=== PATIENT | female | born 1980 | race Caucasian/White ===

== ENCOUNTER 2022-08-24 08:11 | Outpatient (CLI) | payer OTHER, SELFPAY ==
[2022-08-24 15:15] LABS: Albumin* 4.4 g/dL (3.3-5.0); Chloride* 106 mmol/L (96-114)
[2022-08-24 15:16] LABS: Potassium* 4.4 mmol/L (3.6-5.1); Sodium* 139 mmol/L (135-149)
[2022-08-24 15:18] LABS: Bilirubin Total* 0.6 mg/dL (0.1-1.5); Blood Urea Nitrogen* 20 mg/dL (5-24); Carbon Dioxide* 23 mmol/L (20-32); Cholesterol* 180 mg/dL (90-199); Creatinine* 0.6 mg/dL (0.5-1.5); Estimated Glomerular Filt Rate 116 ml/min; Total Protein* 7.1 g/dL (6.0-8.3)
[2022-08-24 15:19] LABS: Alanine Aminotransferase* 18 U/L (4-35); Alkaline Phosphatase* 44 U/L (40-150); Aspartate Amino Transferase* 21 U/L (12-35); Calcium* 9.5 mg/dL (8.4-10.6); Glucose* 78 mg/dL (60-115); HDL Cholesterol* 79 mg/dL (>=50)
== END 2022-08-24 08:12 | disposition home or self-care (01) ==
PROVIDERS: PCP Physician Assistant Medical; Visit Provider Family Medicine
DX: Z01.419 Encounter for gynecological examination (general) (routine) without abnormal findings (principal); B35.1 Tinea unguium
CPT/HCPCS: 80053; 80076; 82465; 83718

== ENCOUNTER 2022-11-09 08:17 | Outpatient (CLI) | payer OTHER, SELFPAY ==
[2022-11-09 14:29] LABS: Alanine Aminotransferase* 18 U/L (4-35); Albumin* 3.9 g/dL (3.3-5.0); Alkaline Phosphatase* 41 U/L (40-150); Aspartate Amino Transferase* 21 U/L (12-35); Bilirubin Direct* 0.2 mg/dL (0.0-0.5); Bilirubin Total* 0.3 mg/dL (0.1-1.5); Total Protein* 6.6 g/dL (6.0-8.3)
== END 2022-11-09 08:18 | disposition home or self-care (01) ==
LOC: LKVREF 08:17
PROVIDERS: PCP Physician Assistant Medical; Visit Provider Family Medicine
DX: B35.1 Tinea unguium (principal)
CPT/HCPCS: 80076

== ENCOUNTER 2023-10-06 08:24 | Outpatient (CLI) | payer OTHER, SELFPAY | END 2023-10-06 08:25 | disposition home or self-care (01) | LOC: NFLDREF 08:28 | PROVIDERS: PCP Family Medicine; Visit Provider Internal Medicine | DX: Z13.29 Encounter for screening for other suspected endocrine disorder (principal) | CPT/HCPCS: 84443 ==

== ENCOUNTER 2024-08-07 14:44 | Outpatient (CLI) | payer OTHER, SELFPAY ==
--- NOTE | 2024-08-07 14:45 | CRLHL7_ITS ---
For Patients: As a result of the Cures Act, medical imaging exams and procedure reports are released immediately into your electronic medical record. You may view this report before your referring provider. If you have questions, please contact your health care provider. INDICATION: Thyroid nodule COMPARISON: 08/01/2021 TECHNIQUE: Jeter scale and color Doppler images were acquired of the thyroid gland. FINDINGS: Isthmus measures 3.8 millimeters. Solid and cystic nodule left thyroid lobe inferior pole measures 7 x 3 x 8 millimeters, TR 3. Solid hypoechoic nodule right thyroid lobe measures 8 x 6 x 6 millimeters, TR 4. Solid nodule right thyroid lobe previously biopsied measures 3.4 x 1.7 x 2.5 cm, TR 4, not significantly changed. The right lobe measures 5.7 x 1.9 x 2.4 cm and the left lobe measures 5.4 x 1.4 x 1.6 cm in size. The color Doppler images demonstrate normal vascularity. There is no evidence of cervical lymphadenopathy or parathyroid mass. IMPRESSION: Similar previously biopsied TR 4 nodule right thyroid lobe measuring 3.4 cm. Dictated by Michael Longoria MD @ 08/08/2024 11:47:53 AM (Electronically Signed)
--- OUTSIDE RECORDS SUMMARY | 2024-08-07 14:48 | XMS_ITS | Clinical Summary ---
Author Organization [facility] Address [address] [place] [address] Care Team Providers Care Riveter Name Role Phone Alfonso Mar MD Primary Care Provider Allergies No known active allergies Medications Medication Sig Dispensed Refills Start Date End Date Status ibuprofen (ADVIL/MOTRIN) 600 MG tabletIndications:Po stoperative pain Take 1 tablet (600 mg) by mouth every 6 hours as needed for mild pain or moderate pain (4-6) Take w/ food 30 tablet 11/17/2022 Active Active Problems Problem Noted Date Diagnosed Date Oral contraceptive pill surveillance 03/17/2021 Resolved Problems Problem Noted Date Diagnosed Date Resolved Date Exposure to influenza 12/12/20192019 delivery delivered 12/12/2019 01/12/2020 Breech presentation, deliver ed, current hospitalization 11/20/2019 01/12/2020 Genital herpes simplex virus (HSV) infection in mother affecting 11/20/2019 12/12/2019 AMA (advanced maternal age) multigravida 35+ 9 12/12/2019 Immunizations Name Administration Dates Next Due Influenza Vaccine >6 months,quad, PF 09/06/2019 TDAP Vaccine (Adacel) 09/18/2019 Family History Medical History Relation Comments No Known Problems Father No Known Problems Mother Unknown/Adopted No family hx of Relation Status Comments Father Alive Mother Alive Social History Tobacco Use Types Packs/Day Years Used Date Smoking Tobacco: Former Cigarettes Q uit: 03/08/2005 Smokeless Tobacco: Never Tobacco Cessation:Counseling Given: No Alcohol Use Standard Drinks/Week Comments Never 0 (1 standard drink = 0.6 oz pur e alcohol) AUDIT-C Answer Date Recorded Q1: How often do you have a drink containing alc ohol? Never 06/05/2019 Average Number of Drinks Not on file 019 Frequency of Binge Drinking Not on file 03/2019 PHQ-2 Answer Date Recorded PHQ-2 Score 0 09/04/2022 [place] Depression Scale Answer Date Recorded [place] Depression Score 6 12/14/2019 Last EPDS Self Harm Result Not on file 12/14 Adolescent Education Answer Date Record ed Getting School Help Needed Not on file 08/15 Sex and Gender Information Value Date Recorded Sex Assigned at Not on file Gender Identity Not on file Sexual Orientation Not on file Last Filed Vital Signs Vital Sign Reading Time Taken Comments Blood Pressure 118/62 01/11/2023 2:36 PM CDT Pulse 51 11/17/2022 9:30 AM YARD PIPE GRADER Temperature 37.4 ??C (99.4 ??F) 11/17/2022 10:[address] Respiratory Rate 16 11/17/2022 10:08 AM YARD PIPE GRADER Oxygen Saturation 98% 11/17/2022 10:08 AM YARD PIPE GRADER Inhaled Oxygen Concentration - - Weight 85.7 kg (189 lb) 01/11/2023 2:36 PM CDT Height 167.6 cm (5' 6) 01/11/2023 2:36 PM CDT Body Mass Index 30.51 01/11/2023 2:36 PM CDT Plan of Treatment Health Maintenance Due Date Last Done Comments ANNUAL REVIEW OF HM ORDERS 1981 GLUCOSE 1981 HEPATITIS C SCREENING 1999 HEPATITIS B IMMUNIZATION (1 of 3 - 19+ 3-dose series) 2000 LIPID 2021 YEARLY PREVENTIVE VISIT 09/04/2023 09/04/2022, 03/17 PHQ-2 (once per calendar year) 2023 09/04/2022, 03/17/2021, 03/17/2021, Additional history exists HPV TEST 03/17/2024 03/17/2021, 01/20/2018 PAP 03/17/2024 03/17/2021, 12/31, 01/20/2018 COVID-19 Vaccine ( season) 2024 INFLUENZA VACCINE (#1) 2024 09/06/2019, 2018 MAMMO SCREENING 11/02/2025 11/02/2023, 09/25/2022 ADVANCE CARE PLANNING 03/17/2026 03/17/2021 DTAP/TDAP/TD IMMUNIZATION (3 - Td or Tdap) 09/18/2029 09/18/2019, 04/02/2008 HIV SCREENING Completed 05/31/2019 HPV IMMUNIZATION Aged Out No longer e ligible based on patient's age to complete this topic MENINGITIS IMMUNIZATION Aged Out No l onger eligible based on patient's age to complete this topic Pneumococcal Vaccine: Pediatrics (0 to 5 Years) and At-Risk Patients (6 to 64 Years) Aged Out No longer eligible based on patient's age to complete this topic RSV MONOCLONAL ANTIBODY Aged Out No l onger eligible based on patient's age to complete this topic Procedures Procedure Name Priority Date/Time Associated Diagnosis Comments MA SCREENING BILATERAL W/ ROGER Routine 11/02/2023 9:09 AM YARD PIPE GRADER Visit for screening mammogram PAP IMAGED THIN LAYER SCREEN Routine 03/17/2021 3:52 PM CDT Screening for malignant neoplasm of cervix HPV HIGH RISK TYPES DNA CERVICAL Routine 03/17/2021 3:45 PM CDT Screening for malignant neoplasm of cervix HIV ANTIGEN ANTIBODY COMBO Routine 05/31/2019 2:03 PM CDT care, subsequent , unspecified trimester from Last 3 Months or Most Recently Relevant to Health Maintenance Results * MA Screen Bilateral w/Roger (11/02/2023 9:09 AM YARD PIPE GRADER) Anatomical Region Laterality Modality Breast Bilateral Mammography Impressions 11/02/2023 11:02 AM YARD PIPE GRADER IMPRESSION: ACR BI-RADS Category 1: Negative RECOMMENDED FOLLOW-UP: Annual routine screening mammogram The results and recommendations of this examination will be communicated to the patient. Herson Block MD Narrative 11/02/2023 11:02 AM YARD PIPE GRADER BILATERAL FULL FIELD DIGITAL SCREENING MAMMOGRAM WITH TOMOSYNTHESIS Performed on: 11/02/23 Compared to: 09/25/2022 Technique: ??This study was evaluated with the assistance of Computer-Aided Detection. ??Breast Tomosynthesis was used in interpretation. Findings: The breasts have scattered areas of fibroglandular density. ?? There is no radiographic evidence of malignancy. Jomar Cameron MD IM MAMMOGRAPHY ORDE PREM * Pap imaged thin layer screen with HPV - recommended age 30 - 65 (03/17/2021 3:52 PM CDT) PAP NIL COPATH Copath Report Patient Name: TANNA CASEY MR#: [id number] Specimen #: [id number] Collected: 03/17/2021 Received: 03/18/2021 Reported: 03/20/2021 10:44 Ordering Phy(s): JOMAR CAMERON For improved result formatting, select 'View Enhanced Report Format' under Linked Documents section. SPECIMEN/STAIN PROCESS: Pap imaged thin layer prep screening (Surepath, FocalPoint with guided screening) ? Pap-Cyto x 1, HPV ordered x 1 SOURCE: Cervical, endocervical Pap imaged thin layer prep screening (Surepath, FocalPoint with guided screening) SPECIMEN ADEQUACY: Satisfactory for evaluation. -Transformation zone component absent. CYTOLOGIC INTERPRETATION: Negative for intraepithelial lesion or malignancy Electronically signed out by: DONNIE Childs (ASCP) CLINICAL HISTORY: LMP: 03/03/2021 Papanicolaou Test Limitations: ??Cervical cytology is a screening test with limited sensitivity; regular screening is critical for cancer prevention; Pap tests are primarily effective for the diagnosis/preventi on of squamous cell carcinoma, not adenocarcinomas or other cancers. COLLECTION SITE: Client: ??[facility] Location: [facility] () The technical component of this testing was completed at the [facility], with the professional component performed at the [facility], [address] [place] [phone] ([phone]) COPATH Cytology 03/17/2021 3:52 PM CDT 03/18/2021 2:00 PM CDT Jomar Cameron MD LAB - DIAZ TIPTONA L SPECIMEN COPATH * HPV High Risk Types DNA Cervical (03/17/2021 3:45 PM CDT) HPV Source SurePath 03/17/2021 3:52 PM CDT [facility] HPV 16 DNA Negative NEG^Nega tive 03/21/2021 4:42 PM CDT [facility] HPV 18 DNA Negative NEG^Nega tive 03/21/2021 4:42 PM CDT [facility] Other HR HPV Negative NEG^Nega tive 03/21/2021 4:42 PM CDT [facility] Final Diagnosis This patient's sample is negative for HPV DNA. 03/21/2021 4:42 PM CDT [facility] Comment: This test was developed and its performance characteristics determined by the [facility], [facility]. It has not been cleared or approved by the FDA. The laboratory is regulated under CLIA as qualified to perform high-complexity testing. This test is used for clinical purposes. It should not be regarded as investigational or for research. (Note) METHODOLOGY: ??The Walter timur 4800 system uses automated extraction, simultaneous amplification of HPV (L1 region) and beta-globin, ?? followed by ??real time detection of fluorescent labeled HPV and beta globin using specific oligonucleotide probes . The test specifically identifies types HPV 16 DNA and HPV 18 DNA while concurrently detecting the rest of the high risk types (31, 33, 35, 39, 45, 51, 52, 56, 58, 59, 66 or 68). COMMENTS: ??This test is not intended for use as a screening device for women under age 30 with normal cervical cytology. ??Results should be correlated with cytologic and histologic findings. Close clinical followup is recommended. Specimen Description Cervical Cells 03/17/2021 3:52 PM CDT [facility] Cervical Cells 03/17/2021 3: 45 PM CDT 03/17/2021 4:46 PM CDT Jomar Cameron MD LAB - BLOOD ORDERABL ES [facility] [address] [place] [address] [facility] [address] [place] [address] * HIV Antigen Antibody Combo (05/31/2019 2:03 PM CDT) HIV Antigen Antibody Combo Nonreactive NR^Nonrea ctive 06/01/2019 7:58 AM CDT [facility] Comment:HIV-1 p24 Ag & HIV-1 /HIV-2 Ab Not Detected Blood specimen (specimen) 05/31/2019 2:03 PM CDT 05/31/2019 2:08 PM CDT Jomar Cameron MD LAB - BLOOD ORDERABL ES [facility] [address] [place] [address] from Last 3 Months or Most Recently Relevant to Health Maintenance Care Teams Riveter Relationship Specialty Start Date End Date Alfonso Mar MD [facility] [address] [place], [place] [id number] PCP - General Family Medicine 11/17/22
--- OUTSIDE RECORDS SUMMARY | 2024-08-07 14:49 | XMS_ITS | Encounter Summary ---
Author Organization [facility] Address [address] [place] [address] Care Team Providers Care Heel Layer Name Role Phone No Ref-Primary, Physician Primary Care Provider Jomar Cameron MD Unavailable [phone] Val Ramires PA-C Unavailable [phone] Jomar Cameron MD Primary Care Provider [phone] Alfonso Mar MD Primary Care Provider [phone] Reason for Visit * Reason Onset Date Comments Medication Question 08/13/2021 KAVITHA Encounter Details Date Type Department Care Team (Late st Contact Info) Description 08/13/2021 Telephone [facility] Women's [facility] [address] [place] [address] Jomar Cameron MD [address] [place] [address] Medication Question (KAVITHA ) Social History Tobacco Use Types Packs/Day Years Used Date Smoking Tobacco: Former Cigarettes Q uit: 03/08/2005 Smokeless Tobacco: Never Alcohol Use Standard Drinks/Week Comments Never 0 (1 standard drink = 0.6 oz pur e alcohol) AUDIT-C Answer Date Recorded Q1: How often do you have a drink containing alc ohol? Never 06/05/2019 Average Number of Drinks Not on file 019 Frequency of Binge Drinking Not on file 03/2019 PHQ-2 Answer Date Recorded PHQ-2 Score 0 03/17/2021 [place] Depression Scale Answer Date Recorded [place] Depression Score 6 12/14/2019 Last EPDS Self Harm Result Not on file 12/14 Sex and Gender Information Value Date Recorded Sex Assigned at Not on file Gender Identity Not on file Sexual Orientation Not on file documented as of this encounter Miscellaneous Notes * Telephone Encounter - Cheryl Rosa RN - 08/13/2021 10:57 AM CDT Patient informed of message below. Cheryl Rosa RN * Telephone Encounter - Jomar Cameron MD - 08/13/2021 10:36 AM CDT Advise Pt that the her chart suggests she had noted hair loss dating back to before 07/23/2021 visitwith her Family Medicine provider in [place], and Dr. Garcia had then sent in her initial OCP Rx08/05/2021. So the OCPs may not have been the cause of her hair loss. Having said that, I am certainly able to send in a different OCP. I recommend an OCP that has a higher anti-androgen (male hormonewhich women do have some small amount of testosterone production) because androgens can contribute to hair loss. I will send in a Rx Apri OCPs which she can start when her next pack is due to start. * Telephone Encounter - Cheryl Rosa RN - 08/13/2021 8:49 AM CDT Spoke with pt. On Kavitha FE. (this is a new generic) Has been on , and Microgestin Has noticed substantial hair loss in shower and when padilla hair within the last 2-3 months which coincides with start of this pill. Has had thyroid biopsy and labs and all normal. (see care everywhere) No other new medications or changes in life. Hair loss is worse than PP hair loss. Willing to try other options. Please advise. Cheryl Cassin, RN * Telephone Encounter - Yaima Young - 08/13/2021 7:44 AM CDT Reason for Call: Other prescription Detailed comments: pt stated she is experiencing hair loss while taking Kavitha. Please call to discuss. Phone Number Patient can be reached at: Home number on file [phone] (home) Best Time: Can we leave a detailed message on this number? YES Call taken on 08/13/2021 at 7:44 AM by Yaima Young documented in this encounter Plan of Treatment Not on file documented as of this encounter Visit Diagnoses Diagnosis Oral contraceptive pill surveillance- Primary Surveillance of previously prescribed contraceptive pill documented in this encounter Additional Health Concerns Assessment Noted Time PHQ-9 Depression Total Score: 0 03/17/20 21 3:01 PM CDT documented as of this encounter Care Teams Heel Layer Relationship Specialty Start Date End Date No Ref-Primary, Physician PCP - General 05/31/19 10/29/22 Jomar Cameron MD PCP - General dobie worker 10/30/22 11/16/22 Alfonso Mar MD [address] [address] PCP - General Family Medicine 11/17/22 Jomar Cameron MD Assigned OBGYN Provider 08/23/20 Val Ramires PA-C [address] [address] Assigned Surgical Provider 01/15/21 documented as of this encounter
--- OUTSIDE RECORDS SUMMARY | 2024-08-07 14:49 | XMS_ITS | Encounter Summary ---
Author Organization [facility] Address [address] [place] [address] Care Team Providers Care Uniform Attendant Name Role Phone No Ref-Primary, Physician Primary Care Provider Jomar Cameron MD Unavailable [phone] Val Ramires PA-C Unavailable [phone] Jomar Cameron MD Primary Care Provider Alfonso Mar MD Primary Care Provider [phone] Reason for Visit * Reason Comments Medication Refill Encounter Details Date Type Department Care Team (Late st Contact Info) Description 08/05/2021 Refill [facility] [address] [place] [phone] Kolton Garcia MD [address] [place] [address] [address] [place] [address] Medication Refill Social History Tobacco Use Types Packs/Day Years [...] Frequency of Binge Drinking Not on file 0803/2019 PHQ-2 Answer Date Recorded PHQ-2 Score 0 03/17/2021 [place] Depression Scale Answer Date Recorded [place] Depression Score 6 12/14/2019 Last EPDS Self Harm Result Not on file 12/14 Sex and Gender Information Value Date Recorded Sex Assigned at Not on file Gender Identity Not on file Sexual Orientation Not on file documented as of this encounter Miscellaneous Notes * Telephone Encounter - Evelyn Kelly RN - 08/05/2021 11:26 AM CDT Pt wanting to restart OCP. Non smoker- confirmed. Filled until due for next PE. Routed to Dr Garcia as fyi. Evelyn Marie R.N. * Telephone Encounter - Evelyn Kelly RN - 08/05/2021 10:34 AM CDT Message sent to pt to ask if she wants to restart this. Evelyn Marie R.N. documented in this encounter Plan of Treatment Not on file documented as of this encounter Visit Diagnoses Diagnosis Oral contraceptive pill surveillance- Primary Surveillance of previously prescribed contraceptive pill documented in this encounter Additional Health Concerns Assessment Noted Time PHQ-9 Depression Total Score: 0 03/17/20 21 3:01 PM CDT documented as of this encounter Care Teams Uniform Attendant Relationship Specialty Start Date End Date No Ref-Primary, Physician PCP - General 05/31/19 10/29/22 Jomar Cameron MD PCP - General differential tester 10/30/22 11/16/22 Alfonso Mar MD [facility] [address] [place] [address] PCP - General Family Medicine 11/17/22 Jomar Cameron MD Assigned OBGYN Provider 08/23/20 Val Ramires PA-C [address] [place] [address] Assigned Surgical Provider 01/15/21 documented as of this encounter
--- OUTSIDE RECORDS SUMMARY | 2024-08-07 14:49 | XMS_ITS | Encounter Summary ---
Author Organization [place] [facility] Address [address] [place] [address] Care Team Providers Care Permastone Installer Name Role Phone No Ref-Primary, Physician Primary Care Provider Jomar Cameron MD Unavailable [phone] Val Ramires PA-C Unavailable [phone] Jomar Cameron MD Primary Care Provider [phone] Alfonso Mar MD Primary Care Provider [phone] Encounter Details Date Type Department Care Team (Late st Contact Info) Description 01/11/2020 [facility] Medical Advice [facility] Women's [address] [place] [phone] Queenie Lopes, RN Social History Tobacco Use Types Packs/Day Years [...] of Binge Drinking Not on file 03/2019 [place] Depression Scale Answer Date Recorded [place] Depression Score 6 12/14/2019 Last EPDS Self Harm Result Not on file 12/14 Sex and Gender Information Value Date Recorded Sex Assigned at Not on file Gender Identity Not on file Sexual Orientation Not on file documented as of this encounter Plan of Treatment Not on file documented as of this encounter Visit Diagnoses Not on filedocumented in this encounter Care Teams Permastone Installer Relationship Specialty Start Date End Date No Ref-Primary, Physician PCP - General 05/31/19 10/29/22 Jomar Cameron MD PCP - General roof bolter operator 10/30/22 11/16/22 Alfonso Mar MD [facility] [address] [place] [address] PCP - General Family Medicine 11/17/22 Jomar Cameron MD Assigned OBGYN Provider 08/23/20 Val Ramires PARodneyC [address] [place] [address] Assigned Surgical Provider 01/15/21 documented as of this encounter
--- OUTSIDE RECORDS SUMMARY | 2024-08-07 14:49 | XMS_ITS | Clinical Summary ---
Author Organization [facility] Address [place], [place] [address] Care Team Providers Care Railroad Maintenance Clerk Name Role Phone None Primary Care Provider Unavailabl e Allergies No known active allergies Medications Medication Sig Dispensed Refills Start Date End Date Status Kavitha Fe 1.5/30, 28, 1.5 mg-30 mcg (21)/75 mg (7) tablet 02/19/2021 Active minoxidiL (LONITEN) 2.5 mg tabIndications:Alopec ia Take 1 Tablet (2.5 mg) by mouth once daily. 30 Tablet 5 05/23/2024 Active Active Problems Problem Noted Date Diagnosed Date Folliculitis 04/24/2015 Encounters Date Type Department Care Team Description 05/19/2024 Refill [facility] [address] [address] Mariam Ruff MD Refill Request (Minoxidil) from Last 3 Months Immunizations Name Administration Dates Next Due Influenza Virus, Unspecified 09/06/2019 Tdap 04/02/2008 Tdap, Unspecified 09/18/2019 Family History Medical History Relation Name Comments Good Health Father Cancer Maternal Grandmother unknown Good Health Mother Premature CHD (under age 60) Paternal Grandfather [place] in his 80s Relation Name Status Comments Father Maternal Grandmother Mother Paternal Grandfather Social History Tobacco Use Types Packs/Day Years Used Date Smoking Tobacco: Former Cigarettes 0.3 10 1 - 08/21/2012 Smokeless Tobacco: Never Tobacco Cessation:Counseling Given: Yes Comments:3-5 cigs per day until last (04/13/19) Alcohol Use Standard Drinks/Week Comments Not Currently 0 (1 standard drink = 0.6 oz pur e alcohol) rare PHQ-2 Answer Date Recorded PHQ-2 TOTAL SCORE 0 07/23/2021 Social Connections Answer Date Recorded Frequency of Communication with Friends and Fami ly Not on file 11/01/2021 Financial Resource Strain Answer Date R ecorded Difficulty of Paying Living Expenses Not on file 11/01/2021 Difficulty of Paying Living Expenses Not on file 11/01/2021 Sex and Gender Information Value Date Recorded Sex Assigned at Not on file Gender Identity Not on file Sexual Orientation Not on file Obstetrics History Para Term AB IAB SAB Ectopic Multiple Livin g Live Births 1 1 Date Outcome GA Total Labor Labor/2nd/3rd Weight Sex Type Anes PTL Yady A1 A5 Name Clin AB Last Filed Vital Signs Vital Sign Reading Time Taken Comments Blood Pressure 108/68 07/23/2021 7:14 AM CDT Pulse 65 07/23/2021 7:14 AM CDT Temperature 37.3 ??C (99.1 ??F) 04/18/2019 12:46 PM C DT Respiratory Rate - - Oxygen Saturation 95% 07/23/2021 7:14 AM CDT Inhaled Oxygen Concentration - - Weight 85.7 kg (189 lb) 07/23/2021 7:14 AM CDT Height 165.7 cm (5' 5.25) 04/18/2019 12:46 PM C DT Body Mass Index 31.21 04/18/2019 12:46 PM CDT Plan of Treatment Health Maintenance Due Date Last Done Comments Hepatitis C screening for age 18-79 1999 BMI (ht and wt on same day) for age 18+ 04/18/2020 04/18/2019, 01/20/2018, 07/10/2016 Depression screening for age 12+ 07/25/2022 07/25/2021, 07/25/2021, 07/23/2021, Additional history exists Pap test for age 21-65 01/20/2023 8, 01/20/2018, 04/24/2015, Additional history exists COVID-19 vaccine series ( season) 2024 Influenza for age 9-49 07/02/2024 09/06/2019 Tetanus booster 09/18/2029 09/18/2019, 04/02/2008 HIV for age 15-65 Completed 07/17/2016 Tdap Completed 09/18/2019, 04/02/2008 Pneumococcal series for age 6-64 Aged Out No longer eligible based on patient's age to complete this topic Procedures Procedure Name Priority Date/Time Associated Diagnosis Comments ZIGZAG TOPSTITCHER THIN PREP PAP SCREEN IMAGED Routine 01/20/2018 4:22 PM CDT Encounter for gynecological examination (general) (routine) without abnormal findings ANTI HIV 1/2 Routine 07/17/2016 3:14 PM CDT Advanced maternal age, primigravida, first trimester from Last 3 Months or Most Recently Relevant to Health Maintenance Results * ZIGZAG TOPSTITCHER THIN PREP PAP SCREEN IMAGED (01/20/2018 4:22 PM CDT) Case Report Gynecologic Cytology Report ? Case: [id number] ? Authorizing Provider: ??Christen Alonso, ?? Collected: ? 01/20/2018 1622 ? DO ? Ordering Location: ? [facility] ?? Received: ?01/20/2018 1622 ? Clinic ? First Screen: ?Thu Helm ? Pathologist: ? Kevyn Chaudhary MD ? Specimen: ?ZIGZAG TOPSTITCHER ThinPrep Vial Screening, Cervical ? 01/28/2018 11:35 AM T [facility]- ENTRAL LABORATORY INTERPRETATION/ RESULT NEGATIVE FOR INTRAEPITHELIAL LESION OR MALIGNANCY (NIL) (none) 01/28/2018 11:35 AM [facility] EN[facility] LAB[facility]ATORY R NON-NEOPLASTIC FINDING(S) Reactive cellular changes associated with inflammation/repa ir 01/28/2018 11:35 AM T [facility] SPECIMEN ADEQUACY Satisfactory for evaluation No endocervical component seen 01/28/2018 11:35 AM CDT [facility]AL LAB[facility] HPV REQUEST HPV and PAP 01/28/2018 11:35 AM CDT [facility] Date of LMP 12/27/2017 01/28/2018 11:35 AM CDT [facility] Last Pap Date 04/24/15 01/28/2018 11:35 AM CDT [facility] Last Pap Result NIL 8 11:35 AM CDT [facility] EN[facility]AL LAB[facility] Abnormal Pap or [place] Bx in last 5 years No 01/28/2018 11:35 AM CDT [facility] Menstrual Status Regular Periods 01/28/2018 11:35 AM CDT [facility] [place] Bx Done Today No 01/28/2018 11:35 AM CDT [facility] Additional Information None given 01/28/2018 11:35 AM T [facility] Automated Review Successful 01/28/2018 11:35 AM T [facility] Comment:Specimen processed s uccessfully by automated junior java developer device, ThinPrep Imaging System, [employer] ANCILLARY TESTING ZIGZAG TOPSTITCHER HPV Ordered, Please see separate report 01/28/2018 11:35 AM T [facility] Note The pap test is a screening technique, not a diagnostic procedure. ??It is used primarily to screen for squamous cancers and precursor lesions. ??Published studies have shown that it is subject to both false negative and false positive results. ??The pap test should not be used as the sole means to diagnose or exclude pre-malignant and malignant lesions. Interpreted at [facility] (Central Lab, [facility], [facility], [facility], [facility], [facility], [facility]) 01/28/2018 11:35 AM T [facility]TR[facility] LABORAT[facility] Other (Cervical) Non-Blood / Unknown 01/20/2018 4:22 PM CDT 01/20/2018 4:22 PM CDT Christen Alonso DO PATHOLOGY/CYTO LOG[facility] [address] [place] [address], * ANTI HIV 1/2 (07/17/2016 3:14 PM CDT) HIV-1/HIV-2 ANTIBODY Non-Reacti ve Non-Reacti ve 07/18/2016 5:58 PM CDT [facility] TRAL LABORATORY Blood BLOOD SPECIMEN / Unknown Venipuncture / Unknown 07/17/2016 3:14 PM CDT 07/17/2016 3:14 PM CDT Narrative [facility] - 07/18/2016 5:58 PM CDT HIV-1 p24 and HIV-1/HIV-2 Ab not detected Christen Alonso DO SEND OUTS [facility] [address] [place] [address], from Last 3 Months or Most Recently Relevant to Health Maintenance Care Teams Railroad Maintenance Clerk Relationship Specialty Start Date End Date None . PCP - General 03/28/24
--- OUTSIDE RECORDS SUMMARY | 2024-08-07 14:49 | XMS_ITS | Encounter Summary ---
Author Organization [place] Address [address] [place] [address] Care Team Providers Care Clinical Nurse Reviewer Name Role Phone No Ref-Primary, Physician Primary Care Provider Jomar Cameron MD Unavailable [phone] Val Ramires PA-C Unavailable [phone] Jomar Cameron MD Primary Care Provider [phone] Alfonso Mar MD Primary Care Provider [phone] Encounter Details Date Type Department Care Team (Late st Contact Info) Description 12/05/2019 Orders Only [facility] [address] [place] [id number] Jomar Cameron MD [address] [place], [place] [address] Pre-operative laboratory examination (Primary Dx) Social History Tobacco Use Types Packs/Day Years Used Date Smoking Tobacco: Former Cigarettes Q uit: 03/08/2019 Smokeless Tobacco: Never Alcohol Use Standard Drinks/Week Comments Never 0 (1 standard drink = 0.6 oz pur e alcohol) AUDIT-C Answer Date Recorded Q1: How often do you have a drink containing alc ohol? Never 06/05/2019 Average Number of Drinks Not on file 019 Frequency of Binge Drinking Not on file 03/2019 Comments Yes Sex and Gender Information Value Date Recorded Sex Assigned at Not on file Gender Identity Not on file Sexual Orientation Not on file documented as of this encounter Plan of Treatment Not on file documented as of this encounter Results * ABO/Rh type and screen (12/11/2019 10:14 AM ELECTRONIC COMPONENT PROCESSOR) ABO A 12/11/2019 11:23 AM ELECTRONIC COMPONENT PROCESSOR [facility] RH(D) Pos [facility] Antibody Screen Neg 12/11/2019 11:23 AM ELECTRONIC COMPONENT PROCESSOR [facility] Test Valid Only At [facility] 12/11/2019 10:38 AM ELECTRONIC COMPONENT PROCESSOR [facility] Specimen Expires 12/14/2019 12/11/2019 10:38 AM ELECTRONIC COMPONENT PROCESSOR [facility] Blood specimen (specimen) 12/11/2019 10:14 AM ELECTRONIC COMPONENT PROCESSOR 12/11/2019 10:15 AM ELECTRONIC COMPONENT PROCESSOR Jomar Cameron MD LAB - BLOOD BANK DIGNA T ORDER Performing Organization Address [facility] de Phone Number [facility] [address] [phone] * Hemoglobin (12/11/2019 10:14 AM ELECTRONIC COMPONENT PROCESSOR) Hemoglobin 12.9 11.7 - 15.7 g/dL 12/11/2019 10:27 AM ELECTRONIC COMPONENT PROCESSOR [facility] Blood specimen (specimen) 12/11/2019 10:14 AM ELECTRONIC COMPONENT PROCESSOR 12/11/2019 10:15 AM ELECTRONIC COMPONENT PROCESSOR Jomar Cameron MD LAB - BLOOD ORDERABL ES Performing Organization Address City/[facility] Co de Phone Number [facility] [address] [phone] documented in this encounter Visit Diagnoses Diagnosis Pre-operative laboratory examination- Primary Pre-procedural laboratory examination documented in this encounter Care Teams Clinical Nurse Reviewer Relationship Specialty Start Date End Date No Ref-Primary, Physician PCP - General 05/31/19 10/29/22 Jomar Cameron MD PCP - General tool and equipment rental clerk 10/30/22 11/16/22 Alfonso Mar MD [facility] [address] [address] PCP - General Family Medicine 11/17/22 Jomar Cameron MD Assigned OBGYN Provider 08/23/20 Val Ramires PA-C [address] [address] Assigned Surgical Provider 01/15/21 documented as of this encounter
--- OUTSIDE RECORDS SUMMARY | 2024-08-07 14:49 | XMS_ITS | Encounter Summary ---
Author Organization [place] Address [address] [place] [address] Care Team Providers Care Community Integration Specialist Name Role Phone No Ref-Primary, Physician Primary Care Provider Jomar Cameron MD Unavailable [phone] Val Ramires PA-C Unavailable [phone] Jomar Cameron MD Primary Care Provider [phone] Alfonso Mar MD Primary Care Provider [phone] Encounter Details Date Type Department Care Team (Late st Contact Info) Description 08/05/2021 [facility] [place] [place] Medical Advice [facility] [address] [place] [address] Evelyn Kelly, RN Social History Tobacco Use Types Packs/Day [...] Answer Date Recorded PHQ-2 Score 0 03/17/2021 [place] Depression Scale Answer Date Recorded [place] Depression Score 6 12/14/2019 Last EPDS Self Harm Result Not on file 12/14 Sex and Gender Information Value Date Recorded Sex Assigned at Not on file Gender Identity Not on file Sexual Orientation Not on file documented as of this encounter Plan of Treatment Not on file documented as of this encounter Visit Diagnoses Not on filedocumented in this encounter Additional Health Concerns Assessment Noted Time PHQ-9 Depression Total Score: 0 03/17/20 3:01 PM CDT documented as of this encounter Care Teams Community Integration Specialist Relationship Specialty Start Date End Date No Ref-Primary, Physician PCP - General 05/31/19 10/29/22 Jomar Cameron MD PCP - General stereoptic projection topographer 10/30/22 11/16/22 Alfonso Mar MD [address] [address] PCP - General Family Medicine 11/17/22 Jomar Cameron MD Assigned OBGYN Provider 08/23/20 Val Ramires, PARodneyC [address] [place] [address] Assigned Surgical Provider 01/15/21 documented as of this encounter
--- OUTSIDE RECORDS SUMMARY | 2024-08-07 14:49 | XMS_ITS | Encounter Summary ---
Author Organization [place] Address [address] [place] [address] Care Team Providers Care Feeder Operator Automatic Name Role Phone No Ref-Primary, Physician Primary Care Provider Jomar Cameron MD Unavailable [phone] Val Ramires PA-C Unavailable [phone] Jomar Cameron MD Primary Care Provider [phone] Alfonso Mar MD Primary Care Provider [phone] Encounter Details Date Type Department Care Team (Late st Contact Info) Description 07/01/2020 Orders Only [address] [address] Filomena Perez CMA Therapeutic drug monitoring Social History Tobacco Use Types Packs/Day Years [...] PHQ-2 Answer Date Recorded PHQ-2 Score 0 01/26/2020 [place] Depression Scale Answer Date Recorded [place] Depression Score 6 12/14/2019 Last EPDS Self Harm Result Not on file 12/14 Sex and Gender Information Value Date Recorded Sex Assigned at Not on file Gender Identity Not on file Sexual Orientation Not on file COVID-19 Exposure Response Date Recorded In the last month, have you been in contact with someone who was confirmed or suspected to have Coronavirus / COVID-19? No / Unsure 07/01/2020 9:59 AM CDT documented as of this encounter Plan of Treatment Not on file documented as of this encounter Visit Diagnoses Diagnosis Therapeutic drug monitoring Encounter for therapeutic drug monitoring documented in this encounter Additional Health Concerns Assessment Noted Time PHQ-9 Depression Total Score: 1 01/26/20 20 9:35 AM CDT documented as of this encounter Care Teams Feeder Operator Automatic Relationship Specialty Start Date End Date No Ref-Primary, Physician PCP - General 05/31/19 10/29/22 Jomar Cameron MD PCP - General statistical assistant 10/30/22 11/16/22 Alfonso Mar MD [address] [address] PCP - General Family Medicine 11/17/22 Jomar Cameron MD Assigned OBGYN Provider 08/23/20 Val Ramires PA-C [address] [place] [address] Assigned Surgical Provider 01/15/21 documented as of this encounter
--- OUTSIDE RECORDS SUMMARY | 2024-08-07 14:49 | XMS_ITS | Referral Summary ---
Author Organization [facility] Address [address] [place] [address] Care Team Providers Care Automation Design Engineer Name Role Phone Alfonso Mar MD Primary Care Provider [phone] Allergies No known active allergies Medications Medication [...] months,quad, PF 09/06/2019 TDAP Vaccine (Adacel) 09/18/2019 Social History Tobacco Use Types Packs/Day Years [...] Frequency of Binge Drinking Not on file 08/0 03/2019 PHQ-2 Answer Date Recorded PHQ-2 Score 0 09/04/2022 [place] Depression Scale Answer Date Recorded [place] Depression Score 6 12/14/2019 Last EPDS Self [...] PM CDT Pulse 51 11/17/2022 9:30 AM AUTOMATIC SPOOLER OPERATOR Temperature 37.4 ??C (99.4 ??F) 11/17/2022 10:[address] Respiratory Rate 16 11/17/2022 10:08 AM AUTOMATIC SPOOLER OPERATOR Oxygen Saturation 98% 11/17/2022 10:08 AM AUTOMATIC SPOOLER OPERATOR Inhaled Oxygen Concentration - - Weight 85.7 kg (189 lb) 01/11/2023 2:36 PM CDT Height 167.6 cm (5' 6) 01/11/2023 2:36 PM CDT Body Mass Index 30.51 01/11/2023 2:36 PM CDT Plan of Treatment Not on file Procedures Procedure Name Priority Date/Time Associated Diagnosis Comments MA SCREENING BILATERAL W/ ROGER Routine 11/02/2023 9:09 AM AUTOMATIC SPOOLER OPERATOR Visit for screening mammogram PAP IMAGED THIN [...] MA Screen Bilateral w/Roger (11/02/2023 9:09 AM AUTOMATIC SPOOLER OPERATOR) Anatomical Region Laterality Modality Breast Bilateral Mammography Impressions 11/02/2023 11:02 AM AUTOMATIC SPOOLER OPERATOR IMPRESSION: ACR BI-RADS Category 1: Negative RECOMMENDED FOLLOW-UP: Annual routine screening mammogram The results and recommendations of this examination will be communicated to the patient. Herson Block MD Narrative 11/02/2023 11:02 AM AUTOMATIC SPOOLER OPERATOR BILATERAL FULL FIELD DIGITAL SCREENING MAMMOGRAM WITH TOMOSYNTHESIS Performed on: 11/02/23 Compared to: 09/25/2022 Technique: ??This study was evaluated with the assistance of Computer-Aided Detection. ??Breast Tomosynthesis was used in interpretation. Findings: The breasts have scattered areas of fibroglandular density. ?? There is no radiographic evidence of malignancy. Jomar Cameron MD IMG MAMMOGRAPHY ORDE PREM * Pap imaged thin layer screen with HPV - recommended age 30 - 65 (03/17/2021 3:52 PM CDT) PAP NIL COPATH Copath Report Patient Name: TANNA CASEY MR#: [id number] Specimen #: [id number] Collected: 03/17/2021 Received: 03/18/2021 Reported: 03/20/2021 10:44 [...] adenocarcinomas or other cancers. COLLECTION SITE: Client: ??[facility] Location: [facility] (R) The technical component of this testing was completed at the [facility], with the professional component performed at the [facility], [address] [place] [address], [place] [address] ([phone]) COPATH Cytology 03/17/2021 3:52 PM CDT 03/18/2021 2:00 PM CDT Jomar Cameron MD LAB - [facility] SPECIMEN COPATH * HPV High Risk Types DNA Cervical (03/17/2021 3:45 PM CDT) HPV Source [facility] 03/17/2021 3:52 PM CDT [facility] HPV 16 DNA Negative NEG^Nega tive 03/21/2021 4:42 PM CDT [facility] HPV 18 DNA Negative NEG^Nega tive 03/21/2021 4:42 PM CDT [facility] Other HR HPV Negative NEG^Nega tive 03/21/2021 4:42 PM CDT [facility] Final Diagnosis This patient's sample is negative for HPV DNA. 03/21/2021 4:42 PM CDT [facility] Comment: This test was developed and its performance characteristics determined by the [facility], Molecular Diagnostics Laboratory. It has not been [...] Description Cervical Cells 03/17/2021 3:52 PM CDT [facility] Cervical Cells 03/17/2021 3: 45 PM CDT 03/17/2021 4:46 PM CDT Jomar Cameron MD LAB - BLOOD ORDERABL ES Performing Organization Address City/[facility] Co de Phone Number [facility] [address] [place] [address] [facility] [address] [place] [address] * HIV Antigen Antibody Combo (05/31/2019 2:03 PM CDT) HIV Antigen Antibody Combo Nonreactive NR^Nonrea ctive 06/01/2019 7:58 AM CDT [facility] Comment:HIV-1 p24 Ag & HIV-1 /HIV-2 Ab Not Detected Blood specimen (specimen) 05/31/2019 2:03 PM CDT 05/31/2019 2:08 PM CDT Jomar Cameron MD LAB - BLOOD ORDERABL ES Performing Organization Address City/[facility] Co de Phone Number [facility] [address] [place] [address] from Last 3 Months or Most Recently Relevant to Health Maintenance Care Teams Automation Design Engineer Relationship Specialty Start Date End Date Alfonso Mar MD [facility] [address] [place], [place] [id number] PCP - General Family Medicine 11/17/22
== END 2024-08-07 14:45 | disposition home or self-care (01) ==
PROVIDERS: PCP Family Medicine; Visit Provider Family Medicine
DX: E04.1 Nontoxic single thyroid nodule (principal)
CPT/HCPCS: 76536

== ENCOUNTER 2024-11-13 13:15 | Outpatient (RCR) | payer OTHER, SELFPAY | END 2025-01-04 13:24 | disposition home or self-care (01) | PROVIDERS: PCP Family Medicine; Visit Provider Family Medicine | DX: M19.011 Primary osteoarthritis, right shoulder (principal); M75.51 Bursitis of right shoulder; M25.511 Pain in right shoulder; Z51.89 Encounter for other specified aftercare | CPT/HCPCS: 97140; 97161; 97530 ==

== ENCOUNTER 2025-01-01 08:15 | Outpatient (CLI) | payer OTHER, SELFPAY | END 2025-01-01 08:16 | disposition home or self-care (01) | LOC: NFLDREF 01-02 00:29 | PROVIDERS: PCP Family Medicine; Referring Provider Family Medicine; Visit Provider Family Medicine | DX: Z13.228 Encounter for screening for other metabolic disorders (principal); Z13.220 Encounter for screening for lipoid disorders | CPT/HCPCS: 80053; 80061 ==

== ENCOUNTER 2025-01-04 08:15 | Outpatient (CLI) | payer OTHER, SELFPAY | END 2025-01-04 08:16 | disposition home or self-care (01) | LOC: NFLDREF 01-05 07:46 | PROVIDERS: PCP Family Medicine; Referring Provider Family Medicine; Visit Provider Family Medicine | DX: R63.5 Abnormal weight gain (principal); E04.1 Nontoxic single thyroid nodule | CPT/HCPCS: 84443 ==

== ENCOUNTER 2025-03-02 12:49 | Outpatient (CLI) | payer OTHER, SELFPAY ==
--- NOTE | 2025-03-02 13:00 | MR_ITS ---
EXAM: MRI of the RIGHT SHOULDER, without contrast CLINICAL: Evaluate for rotator cuff tear. COMPARISONS: X-rays dated 04/26/2024. TECHNICAL: Multiplanar multisequence MRI of the right shoulder was obtained. SEDATION: None. CONTRAST: None. FINDINGS: Evaluation of the obtained sequences is relatively limited by motion artifact. Rotator cuff: Supraspinatus/Infraspinatus: Suspect mild partial articular surface tearing of the posterior distal supraspinatus tendon extending into the anterior distal infraspinatus tendon on coronal series 5 image 12-14. No fatty atrophy of the muscles. Teres minor: No tendinosis, tear or atrophy. Subscapularis: No evidence of significant tendinosis or tendon tear as visualized. No fatty atrophy of the muscle. Bursae: Subacromial-subdeltoid: No significant bursal fluid. Subcoracoid: No significant bursal fluid. Coracoacromial arch: Acromion morphology: Type II. No os acromiale. Acromiohumeral space: Within normal limits. Coracohumeral space: Within normal limits. Biceps tendon, long head: Evaluation of the intra-articular tendon is limited on the sagittal sequences secondary to prominent artifact. No evidence of tendon rupture or displacement. Glenohumeral joint: Physiologic volume of joint fluid. Articular cartilage: No significant chondral loss. Capsule: No evidence of capsular thickening or injury. Labrum: Evaluation of the labrum is significantly limited by artifact. No well-defined tear identified as visualized. Bones: No evidence of concerning osseous lesion, fracture or dislocation. Acromioclavicular joint: There are advanced changes of arthrosis at the AC joint with associated prominent reactive bone marrow edema about the articulation. Cystic changes are also noted about the articulation. No AC joint widening. IMPRESSION: 1. Suspect mild partial articular surface tearing of the posterior distal supraspinatus tendon extending into the anterior distal infraspinatus tendon. 2. 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 3. No additional internal derangement identified as visualized. JCZ Electronically signed on 03/02/2025 4:05:00 PM by Pierre Llanos D.O.
== END 2025-03-02 12:50 | disposition home or self-care (01) ==
PROVIDERS: PCP Family Medicine; Visit Provider Orthopaedic Surgery Sports Medicine
DX: M75.101 Unspecified rotator cuff tear or rupture of right shoulder, not specified as traumatic (principal); M19.011 Primary osteoarthritis, right shoulder
CPT/HCPCS: 73221